=== PATIENT | male | born 1990 | race African-American/Black ===

== ENCOUNTER 2017-01-20 12:07 | Emergency (ER) | payer SELFPAY ==
[~2017-01-20] VITALS: Ht 188 cm; Wt 174.6 kg
[~2017-01-20 12:07] MED LIST: IBUPROFEN600 MG ORAL; PROMETHAZINE-C118 M1 ORAL; ZITHROMAX250 MG ORAL
[2017-01-20] MEDS ORDERED: NKM (12:22)
--- NOTE | 2017-01-20 12:42 | Emergency Room Report ---
History of Present Illness General Chief Complaint: Flu Like Symptoms Source: Patient Present Illness HPI 26-year-old male presents to the emergency department complaining of persistent dry cough with nasal congestion and rhinorrhea x3 days. Patient states initial onset with fatigue and body aches. Patient denies fevers or chills. Patient states he is a smoker and had a history of asthma when he was younger. 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 Patient denies neck pain or stiffness, abdominal pain, rashes, swelling of the lower extremities or cardiac history. Denies CP, Palpitations, LOC, AMS, dizziness, Changes in Vision, or a sudden severe headache. Allergies: Coded Allergies: No Known Allergies (Unverified , 01/17/16) Patient History Past Medical History: see triage record Past Surgical History: none Pertinent Family History: none Immunizations: UTD Reviewed Nursing Documentation: PMH: Agreed, PSxH: Agreed Nursing Documentation-PMH Past Medical History: No Stated History Review of Systems All Other Systems: negative except mentioned in HPI Physical Exam Vital Signs Date Time Temp Pulse Resp B/P (MAP) Pulse Ox O2 Delivery O2 Flow Rate FiO2 01/20/17 12:19 97.5 72 16 143/97 99 Room Air Sp02 EP Interpretation: reviewed, normal General Appearance: no apparent distress, alert, GCS 15, non-toxic Head: normocephalic, atraumatic Eyes: bilateral eye normal inspection, bilateral eye PERRL ENT: hearing grossly normal, normal pharynx, no angioedema, normal voice, TMs + canals normal, uvula midline, nasal congestion Neck: full range of motion, no meningismus, no bony tend, supple/symm/no masses Respiratory: chest non-tender, speaking full sentences, wheezing - bilateral mild wheezes Cardiovascular #1: regular rate, rhythm Gastrointestinal: non tender, soft Musculoskeletal: back normal, gait/station normal, normal range of motion, non- tender Neurologic: alert, oriented x3, responsive, motor strength/tone normal, sensory intact, speech normal Skin: normal color, no rash, warm/dry, well hydrated Lymphatic: no adenopathy Medical Decision Making PA Attestation Dr. Mckeon is my supervising Physician whom patient management has been discussed with. Diagnostic Impression: Primary Impression: Bronchitis Additional Impression: Upper respiratory infection, viral ER Course 26-year-old male presents to the emergency department complaining of persistent dry cough with nasal congestion and rhinorrhea x3 days. Patient states initial onset with fatigue and body aches. Patient denies fevers or chills. Patient states he is a smoker and had a history of asthma when he was younger. 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 Patient denies neck pain or stiffness, abdominal pain, rashes, swelling of the lower extremities or cardiac history. Denies CP, Palpitations, LOC, AMS, dizziness, Changes in Vision, or a sudden severe headache. Ddx considered but are not limited to URI, pneumonia, PE, strep pharyngitis, CHF , asthma/COPD, meningitis. Vital signs: Pt.is afebrile VS are WNL H&PE are most consistent with bronchitis/ URI viral etiology no evidence to suggest bacterial infection at this time. ORDERS: none required at this time, the diagnosis is clinical ED INTERVENTIONS: None required at this time. DISCHARGE: At this time pt. is stable for d/c to home. Will provide printed patient care instructions, and any necessary prescriptions. Care plan and follow up instructions have been discussed with the patient prior to discharge. Last Vital Signs Date Time Temp Pulse Resp B/P (MAP) Pulse Ox O2 Delivery O2 Flow Rate FiO2 01/20/17 12:19 97.5 72 16 143/97 99 Room Air Departure Forms: Return to Work Return to Work Date: Jan 24, 2017 Work Restrictions: None Return to Full Activity: Jan 24, 2017 Patient Instructions: Acute Bronchitis, [id number] Additional Instructions: Take medications as directed. Follow up with a Primary Care Provider in 3-5 days, even if your symptoms have resolved. --Please review list of primary care clinics, if you do not already have a primary care provider Return sooner to ED if new symptoms occur, or current symptoms become worse. Do not drink alcohol, drive, or operate heavy machinery while taking Cough Syrup as this may cause drowsiness. - Please note that this Emergency Department Report was dictated using [employer] pad buffer technology software, occasionally this can lead to erroneous entry secondary to interpretation by the dictation equipment. Ayaka Bales Jan 20, 2017 12:42
[2017-01-20] MEDS ORDERED: TESSALON PERLE100 MG ORAL (12:55)
[2017-01-20] MEDS ORDERED: PROMETHAZINE-C118 M1 ORAL (12:55)
[2017-01-20] MEDS ORDERED: GUAIFENESIN1200 MG PO (12:55)
[2017-01-20] MEDS ORDERED: ALBUTEROL SULF8.5 GM INH (12:55)
[2017-01-20 13:01] VITALS: BP 143/97
[2017-01-20 13:03] VITALS: BP 143/97
== END 2017-01-20 13:03 | disposition home or self-care (01) ==
LOC: EMR 13:00
DX: J40 Bronchitis, not specified as acute or chronic (principal); J06.9 Acute upper respiratory infection, unspecified
CPT/HCPCS: 99282

== ENCOUNTER 2017-04-28 14:55 | Emergency (ER) | payer SELFPAY ==
[~2017-04-28] VITALS: Ht 190.5 cm; Wt 181.4 kg
[~2017-04-28 14:55] MED LIST changes: +ALBUTEROL SULF8.5 GM INH; +GUAIFENESIN1200 MG PO; +NKM; +TESSALON PERLE100 MG ORAL
--- NOTE | 2017-04-28 15:20 | Emergency Room Report ---
History of Present Illness General Chief Complaint: Upper Respiratory Illness Source: Patient, Medical Record Present Illness HPI 27 yo male patient presents to ER complaining of sore throat, cough, and fever x3days. Patient reports fever reached 102 yesterday; no fever in ER today. Patient reports cough with sputum; denies blood in sputum. Patient also complains of nasal congestion. Patient reports using codeine cough syrup, DayQuil, and NyQuil without relief of cough symptoms. Patient requesting codeine cough syrup; states he was previously treated here and it help treat his symptoms. Patient reports using Advil for relief of fever symptoms; states last dosage was prior to arrival at ER. Patient reports coughing is worse at night. Patient denies chest pain, SOB, nausea, vomiting, diarrhea, rash. Allergies: Coded Allergies: No Known Allergies (Unverified , 01/17/16) Patient History Past Medical History: see triage record Reviewed Nursing Documentation: PMH: Agreed, PSxH: Agreed Nursing Documentation-PMH Past Medical History: No History, Except For Review of Systems All Other Systems: negative except mentioned in HPI Physical Exam Vital Signs Date Time Temp Pulse Resp B/P (MAP) Pulse Ox O2 Delivery O2 Flow Rate FiO2 04/28/17 14:57 99.0 93 18 171/99 97 Room Air Sp02 EP Interpretation: reviewed, normal General Appearance: no apparent distress, alert, GCS 15, non-toxic Head: normocephalic, atraumatic Eyes: bilateral eye normal inspection, bilateral eye PERRL ENT: hearing grossly normal, normal pharynx, no angioedema, normal voice, TMs + canals normal, uvula midline, moist mucus membranes, pharyngeal erythema, tonsillar exudate - white Neck: full range of motion, supple/symm/no masses Respiratory: chest non-tender, lungs clear, normal breath sounds, speaking full sentences Cardiovascular #1: regular rate, rhythm Musculoskeletal: back normal, gait/station normal, normal range of motion, non- tender, calf tenderness Neurologic: alert, oriented x3, responsive, motor strength/tone normal, sensory intact, speech normal Psychiatric: mood/affect normal Skin: normal color, no rash, warm/dry, well hydrated Lymphatic: adenopathy Medical Decision Making PA Attestation Dr. Pavon is my supervising Physician whom patient management has been discussed with. Diagnostic Impression: Primary Impression: Pharyngitis Additional Impression: Cough ER Course Pt presents to ED c/o sore throat and cough DDX considered but are not limited to pharyngitis, laryngitis, URI, peritonsillar abscess, tonsillitis, pneumonia VITAL SIGNS are WNL, patient is afebrile ORDERS: CXR negative for acute disease ED INTERVENTIONS: None required at this time DISCHARGE: Rx provided for promethazine with codeine Rx provided for Tylenol Rx provided Amoxicillin At this time pt is stable for d/c to home. Patient is resting comfortably, in no acute distress, nontoxic appearing. Will provide with patient care instructions and any necessary prescriptions. Patient to take medication as instructed. Care plan and follow-up instructions provided. Patient questions asked and answered. Patient instructed to follow-up with primary care provider in 3 - 5 days. ER precautions given. Patient instructed to return to ER immediately for any new or worsening of symptoms. Chest X-Ray Diagnostic Results Chest X-Ray Diagnostic Results : Chest X-Ray Ordered: Yes # of Views/Limited/Complete: 1 View Indication: Chest Pain EP Interpretation: Yes PA Xray: Interpretation reviewed, by supervising MD, and agrees with findings. Interpretation: no consolidation, no effusion, no pneumothorax, no acute cardiopulmonary disease Impression: No acute disease PA Scribe Text Artemio Zabala PA-C Last Vital Signs Date Time Temp Pulse Resp B/P (MAP) Pulse Ox O2 Delivery O2 Flow Rate FiO2 04/28/17 14:57 99.0 93 18 171/99 97 Room Air Disposition: HOME, SELF-CARE Condition: Stable Scripts Amoxicillin* (AMOXIL*) 500 Mg Capsule 500 MG ORAL BID for 10 Days, #20 CAP Prov: Sunil Zabala 04/28/17 Acetaminophen* (TYLENOL EXTRA STRENGTH*) 500 Mg Tablet 500 MG ORAL Q8H Y for Prn Headache/Temp > 101, #30 TAB 0 Refills Prov: Sunil Zabala 04/28/17 Promethazine HCl/Codeine (Prometh-Codein 6.25-10 mg/5 ml) 5 Ml Syrup 5 ML PO DAILY for 7 Days, #70 ML Prov: Sunil Zabala 04/28/17 Patient Instructions: Cough, Adult, [id number], Pharyngitis, [id number] Additional Instructions: Followup with primary care provider in 3 -5 days. Take medications as directed. Patient questions asked and answered. ER precautions given, patient instructed to return to ER immediately for any new or worsening of symptoms. Sunil Zabala Apr 28, 2017 15:20
--- NOTE | 2017-04-28 15:54 | Diagnostic Imaging Report ---
Indication: Chest pain Technique: One view of the chest Comparison: none Findings: Lungs and pleural spaces are clear. Heart size is upper limits normal Impression: No acute process
[2017-04-28] MEDS ORDERED: PROMETH-CODEIN 65 ML PO (16:36)
[2017-04-28] MEDS ORDERED: TYLENOL EXTRA500 MG ORAL (16:36)
[2017-04-28] MEDS ORDERED: AMOXICILLIN500 MG ORAL (16:36)
[2017-04-28 17:00] VITALS: BP 158/96
[2017-04-28 17:05] VITALS: BP 171/99
== END 2017-04-28 17:05 | disposition home or self-care (01) ==
LOC: EMR 15:05
DX: J02.9 Acute pharyngitis, unspecified (principal); R05 Cough
CPT/HCPCS: 71045; 99284